=== PATIENT | male | born 1960 | race American Indian/Alaskan Native ===

== ENCOUNTER 2017-04-14 08:31 | Emergency (ER) | payer BC ==
[2017-04-14 09:04] VITALS: BP 116/43
--- NOTE | 2017-04-14 14:11 | Emergency Department Report ---
ED Lower Extremity HPI - General Chief Complaint: Extremity Injury, Lower Stated Complaint: HIP PAIN Time Seen by Provider: 04/14/17 11:54 Source: patient Mode of arrival: Ambulatory Limitations: No Limitations - History of Present Illness Initial Comments: 56-year-old male past medical history none presents with complaint of 2-3 months of persistent left hip discomfort. Patient states he feels pain in his left buttock, nonradiating. Pain is slightly worse when he fully flexes his left leg or if he laterally extends his left leg. Denies any trauma denies any recent falls. Denies any fevers chills saddle paresthesias no bladder or bowel incontinence reported. Patient is ambulatory without assistance. States it is an aching sensation. Denies paresthesias. MD Complaint: hip injury Onset/Timin -: month(s) Injury: Hip: Left Place: home, work, street/outdoors Severity: moderate Severity scale (0 -10): 5 Worsens With: movement Associated Symptoms: ambulatory - Related Data Previous Rx's Medication Instructions Recorded Last Taken Type Acetaminophen/Codeine 1 tab PO Q6H PRN #10 tab 07/11/14 Unknown Rx [Acetaminophen-Codeine #3 TAB] Ibuprofen [Motrin 600 MG tab] 600 mg PO Q8H PRN #10 tablet 07/11/14 Unknown Rx Naproxen 500 mg PO BID PRN #30 tablet 04/14/17 Unknown Rx traMADol [Ultram 50 MG tab] 50 mg PO Q6HR PRN #6 tablet 04/14/17 Unknown Rx Allergies Allergy/AdvReac Type Severity Reaction Status Date / Time No Known Allergies Allergy Verified 07/11/14 11:49 ED Review of Systems ROS: Stated complaint: HIP PAIN Other details as noted in HPI Constitutional: denies: chills, fever Eyes: denies: eye pain, eye discharge, vision change ENT: denies: ear pain, throat pain Respiratory: denies: cough, shortness of breath, wheezing Cardiovascular: denies: chest pain, palpitations Endocrine: no symptoms reported Gastrointestinal: denies: abdominal pain, nausea, diarrhea Genitourinary: denies: urgency, dysuria Musculoskeletal: as per HPI, arthralgia (left hip). denies: back pain, joint swelling Skin: denies: rash, lesions Neurological: denies: headache, weakness, paresthesias Psychiatric: denies: anxiety, depression Hematological/Lymphatic: denies: easy bleeding, easy bruising ED Past Medical Hx - Past Medical History Previous Medical History?: No - Surgical History Past Surgical History?: No - Social History Smoking Status: Current Every Day Smoker Substance Use Type: None - Medications Home Medications: Home Medications Medication Instructions Recorded Confirmed Last Taken Type Acetaminophen/Codeine 1 tab PO Q6H PRN #10 tab 07/11/14 Unknown Rx [Acetaminophen-Codeine #3 TAB] Ibuprofen [Motrin 600 MG tab] 600 mg PO Q8H PRN #10 tablet 07/11/14 Unknown Rx Naproxen 500 mg PO BID PRN #30 tablet 04/14/17 Unknown Rx traMADol [Ultram 50 MG tab] 50 mg PO Q6HR PRN #6 tablet 04/14/17 Unknown Rx ED Physical Exam - General Limitations: No Limitations General appearance: alert, in no apparent distress - Head Head exam: Present: atraumatic, normocephalic - Eye Eye exam: Present: normal appearance, PERRL, EOMI - ENT ENT exam: Present: mucous membranes moist - Neck Neck exam: Present: normal inspection - Respiratory Respiratory exam: Present: normal lung sounds bilaterally. Absent: respiratory distress - Cardiovascular Cardiovascular Exam: Present: regular rate, normal rhythm. Absent: systolic murmur, diastolic murmur, rubs, gallop - GI/Abdominal GI/Abdominal exam: Present: soft, normal bowel sounds - Rectal Rectal exam: Present: deferred - Extremities Exam Extremities exam: Present: normal inspection - Expanded Lower Extremity Exam Left Hip exam: Present: normal inspection, full ROM (hip flexion and extension internal and external rotation fully intact on clinical exam), external rotation , internal rotation Upper Leg exam: Present: normal inspection, full ROM Knee exam: Present: normal inspection, full ROM (knee flexion and extension intact) Lower Leg exam: Present: normal inspection, full ROM Ankle exam: Present: normal inspection, full ROM Foot/Toe exam: Present: normal inspection, full ROM Neuro vascular tendon exam: Present: no vascular compromise (distal dorsalis pedis and posterior tibial pulses intact) Gait: Positive: observed and normal - Back Exam Back exam: Present: normal inspection - Neurological Exam Neurological exam: Present: alert, oriented X3, CN II-XII intact, normal gait - Psychiatric Psychiatric exam: Present: normal affect, normal mood - Skin Skin exam: Present: warm, dry, intact, normal color. Absent: rash ED Course Vital Signs 04/14/17 09:02 Temperature 98.4 F Pulse Rate 83 Respiratory 16 Rate Blood Pressure 116/43 O2 Sat by Pulse 98 Oximetry ED Lower Extremity MDM - Medical Decision Making A/P: Chronic left hip pain 1-likely fromsciatica as patient states that pain is radiating from lower back through his left buttock. 2-no clinical signs of cauda equina patient is ambulatory no saddle paresthesias no bladder or bowel incontinence 3-naproxen when necessary, short course tramadol when necessary 4- follow-up with primary care and orthopedics Critical care attestation.: If time is entered above; I have spent that time in minutes in the direct care of this critically ill patient, excluding procedure time. ED Disposition Clinical Impression: Left hip pain, Sciatica of left side Disposition: TO HOME OR SELFCARE Is pt being admited?: No Does the pt Need Aspirin: No Condition: Stable Instructions: Hip Bursitis (ED), Sciatica (ED), Arthralgia (ED) Prescriptions: Naproxen 500 mg PO BID PRN #30 tablet PRN Reason: Pain traMADol [Ultram 50 MG tab] 50 mg PO Q6HR PRN #6 tablet PRN Reason: Pain Referrals: [facility] [Outside] - 3-5 Days [facility] [Outside] - 3-5 Days [facility] [Provider Group] - 3-5 Days YUMIKO LOGAN MD [Staff Physician] - 3-5 Days Forms: Accompanied Note, Work/School Release Form(ED) Time of Disposition: 14:49
[2017-04-14] MEDS ORDERED: MOTRIN PO ONE (14:16)
--- NOTE | 2017-04-14 15:27 | XRay Report ---
LEFT HIP, 2 views: History: Left hip pain. The bony architecture is intact without evidence of fracture or dislocation. No significant soft tissue abnormality is seen. IMPRESSION: Normal left hip.
== END 2017-04-14 15:26 | disposition home or self-care (01) ==
LOC: ED 08:31
DX: M54.32 Sciatica, left side (principal); F17.200 Nicotine dependence, unspecified, uncomplicated
CPT/HCPCS: 99283

== ENCOUNTER 2018-05-23 08:31 | Emergency (ER) | payer BC, OTHER ==
[2018-05-23] MEDS ORDERED: IBUPROFEN PO ONE (09:02)
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
[2018-05-23 11:01] VITALS: BP 120/72
== END 2018-05-23 10:32 | disposition home or self-care (01) ==
LOC: ED 08:31
DX: S80.02XA Contusion of left knee, initial encounter (principal); S60.212A Contusion of left wrist, initial encounter; F17.200 Nicotine dependence, unspecified, uncomplicated; V49.9XXA Car occupant (driver) (passenger) injured in unspecified traffic accident, initial encounter; Y93.89 Activity, other specified; Y99.8 Other external cause status; Y92.410 Unspecified street and highway as the place of occurrence of the external cause
CPT/HCPCS: 99283

== ENCOUNTER 2018-12-04 04:09 | Emergency (ER) | payer SELFPAY ==
[2018-12-04 05:26] VITALS: BP 125/84
--- NOTE | 2018-12-04 06:03 | XRay Report ---
Right knee-3 views INDICATION: right knee pain. Generalized right knee pain for the past 2 days with no reported injur y COMPARISON: None. IMPRESSION: Moderate tricompartmental degenerative arthrosis with no acute fracture identified. Ther e is mild infrapatellar soft tissue swelling and enthesopathic change along the inferior patellar vee e. Normal alignment. Signer Name: Johnathon Parker MD Signed: 12/04/2018 5:59 AM Workstation Name: [id number]
--- NOTE | 2018-12-04 07:50 | Emergency Department Report ---
ED Extremity Problem HPI - General Chief complaint: Extremity Injury, Lower Stated complaint: RT KNEE PAIN Time Seen by Provider: 12/04/18 07:02 Source: patient Mode of arrival: Ambulatory Limitations: No Limitations - History of Present Illness Initial comments: 58-year-old -[place] male presents to the emergency room for 2 day history of right knee pain. Patient denies any injuries. Patient reports that he often lifting heavy objects and pulling in her produce refrigerator. Patient reports he took Aleve last Tuesday which she reports health but often irritates his stomach. Patient reports that the pain is achy comes and goes. He denies any past medical history takes no medications on a daily basis and has no known drug allergies. MD Complaint: extremity pain Onset/Timin -: days(s) Location: right, knee History of Same: No -: Yes arthralgia Severity scale (0 -10): 10 Quality: aching Consistency: intermittent Worsens with: rest - Related Data Previous Rx's Medication Instructions Recorded Last Taken Type Meloxicam [Mobic] 7.5 mg PO QDAY #15 tablet 12/04/18 Unknown Rx Allergies Allergy/AdvReac Type Severity Reaction Status Date / Time No Known Allergies Allergy Verified 05/23/18 08:35 ED Review of Systems ROS: Stated complaint: RT KNEE PAIN Other details as noted in HPI Comment: All other systems reviewed and negative Musculoskeletal: arthralgia (right knee) ED Past Medical Hx - Past Medical History Previous Medical History?: No - Surgical History Past Surgical History?: No - Social History Smoking Status: Current Every Day Smoker Substance Use Type: None - Medications Home Medications: Home Medications Medication Instructions Recorded Confirmed Last Taken Type Meloxicam [Mobic] 7.5 mg PO QDAY #15 tablet 12/04/18 Unknown Rx ED Physical Exam - General Limitations: No Limitations General appearance: alert, in no apparent distress - Head Head exam: Present: atraumatic, normocephalic - Eye Eye exam: Present: normal appearance - Neck Neck exam: Present: normal inspection - Respiratory Respiratory exam: Present: normal lung sounds bilaterally. Absent: respiratory distress - Cardiovascular Cardiovascular Exam: Present: regular rate, normal rhythm. Absent: systolic murmur, diastolic murmur, rubs, gallop - Expanded Lower Extremity Exam Right Hip exam: Present: normal inspection, full ROM Upper Leg exam: Present: normal inspection, full ROM Knee exam: Present: full ROM, crepidus. Absent: swelling, abrasion, dislocation, erythema, effusion Lower Leg exam: Present: normal inspection Ankle exam: Present: normal inspection Foot/Toe exam: Present: normal inspection - Back Exam Back exam: Present: normal inspection - Neurological Exam Neurological exam: Present: alert, oriented X3 - Psychiatric Psychiatric exam: Present: normal affect, normal mood - Skin Skin exam: Present: warm, dry, intact, normal color. Absent: rash ED Course Vital Signs 12/04/18 04:39 Temperature 98 F Pulse Rate 70 Respiratory 18 Rate Blood Pressure 125/84 O2 Sat by Pulse 97 Oximetry ED Medical Decision Making - Radiology Data Radiology results: report reviewed Patient: MORENA BENNETT MR#: [id number] : 1960 Acct:[id number] Age/Sex: 58 / M ADM Date: 12/04/18 Loc: ED Attending Dr: Ordering Physician: ED MD ALEX Date of Service: 12/04/18 Procedure(s): XR knee 3V RT Accession Number(s): [id number] cc: ED MD ALEX Fluoro Time In Minutes: Right knee-3 views INDICATION: right knee pain. Generalized right knee pain for the past 2 days with no reported injury COMPARISON: None. IMPRESSION: Moderate tricompartmental degenerative arthrosis with no acute fracture identified. There is mild infrapatellar soft tissue swelling and enthesopathic change along the inferior patellar pole. Normal alignment. Signer Name: Johnathon Parker MD Signed: 12/04/2018 5:59 AM Workstation Name: [id number] Transcribed By: CAN Dictated By: Johnathon Parker MD Electronically Authenticated By: Johnathon Parker MD Signed Date/Time: 12/04/18 0559 DD/ 0558 TD/TT: - Medical Decision Making 58-year-old -[place] male presents to the emergency room for 2 day history of right knee pain. Patient denies any injuries. Patient reports that he often lifting heavy objects and pulling in her produce refrigerator. Patient reports he took Aleve last Tuesday which she reports health but often irritates his stomach. Patient reports that the pain is achy comes and goes. He denies any past medical history takes no medications on a daily basis and has no known drug allergies. Face shows tricompartment degenerative joint disease. Patient will be given a prescription for Mobic and to follow-up with the orthopedic provider. Critical care attestation.: If time is entered above; I have spent that time in minutes in the direct care of this critically ill patient, excluding procedure time. ED Disposition Clinical Impression: Degenerative joint disease of knee, right Qualifiers: Osteoarthritis type: primary Qualified Code(s): M17.11 - Unilateral primary osteoarthritis, right knee Disposition: TO HOME OR SELFCARE Is pt being admited?: No Does the pt Need Aspirin: No Condition: Stable Instructions: Osteoarthritis (ED), Self-Care Measures with a Chronic Disease (ED) Additional Instructions: He take pain medication as needed. It is very important for you to follow up with orthopedic provider I have listed his information below it would be Dr. Barreto. Prescriptions: Meloxicam [Mobic] 7.5 mg PO QDAY #15 tablet Referrals: [facility] MD CURTIS [Primary Care Provider] - 3-5 Days YUMIKO BARRETO MD [Staff Physician] - 3-5 Days
== END 2018-12-04 07:57 | disposition home or self-care (01) ==
LOC: ED 04:09
DX: M17.11 Unilateral primary osteoarthritis, right knee (principal); F17.200 Nicotine dependence, unspecified, uncomplicated; X50.0XXA Overexertion from strenuous movement or load, initial encounter; Y93.89 Activity, other specified; Y92.098 Other place in other non-institutional residence as the place of occurrence of the external cause; Y99.8 Other external cause status
CPT/HCPCS: 99283

== ENCOUNTER 2019-06-12 09:00 | Emergency (ER) | payer SELFPAY ==
[2019-06-12 09:24] VITALS: BP 128/82
--- NOTE | 2019-06-12 10:02 | XRay Report ---
Right foot-2 views INDICATION: pain and swelling. COMPARISON: None. IMPRESSION: Mild soft tissue swelling along the dorsal and medial aspects of the foot, with no acute osseous abnormality identified. Moderate great toe MTP DJD is present. Moderately advanced degenera tive arthrosis at the articulation of the hindfoot and midfoot with slight midfoot collapse. Correlat e for potential evolving neuropathic joint. Signer Name: Johnathno Parker MD Signed: 06/12/2019 9:57 AM Workstation Name: [id number]
--- NOTE | 2019-06-12 11:41 | Emergency Department Report ---
ED Extremity Problem HPI - General Chief complaint: Extremity Injury, Lower Stated complaint: RIGHT TOE PAIN Time Seen by Provider: 06/12/19 11:21 Source: patient Mode of arrival: Ambulatory Limitations: No Limitations - History of Present Illness Initial comments: 58-year-old male presents to the ER today complaining of right fourth toe pain. Patient states that he accidentally struck his right fourth toe on the corner of the bed last night. He reports pain and swelling to the right fourth toe but no apparent bruising. He reports no other symptoms at this time. MD Complaint: joint paint, other (Right 4th toe pain) -: Sudden Location: toe - Related Data Previous Rx's Medication Instructions Recorded Last Taken Type Meloxicam [Mobic] 7.5 mg PO BID PRN #14 tablet 06/12/19 Unknown Rx Allergies Allergy/AdvReac Type Severity Reaction Status Date / Time No Known Allergies Allergy Verified 05/23/18 08:35 ED Review of Systems ROS: Stated complaint: RIGHT TOE PAIN Other details as noted in HPI Constitutional: denies: chills, fever Musculoskeletal: joint swelling, arthralgia ED Past Medical Hx - Past Medical History Previous Medical History?: No - Surgical History Past Surgical History?: No - Social History Smoking Status: Current Every Day Smoker Substance Use Type: Alcohol - Medications Home Medications: Home Medications Medication Instructions Recorded Confirmed Last Taken Type Meloxicam [Mobic] 7.5 mg PO BID PRN #14 tablet 06/12/19 Unknown Rx ED Physical Exam - General Limitations: No Limitations General appearance: alert, in no apparent distress - Head Head exam: Present: atraumatic, normocephalic, normal inspection - ENT ENT exam: Present: normal exam, normal orophraynx, mucous membranes moist - Cardiovascular Cardiovascular Exam: Present: regular rate, normal rhythm, normal heart sounds - GI/Abdominal GI/Abdominal exam: Present: soft. Absent: distended, tenderness - Expanded Lower Extremity Exam Right Foot/Toe exam: Present: tenderness (Moderate tenderness to palpation to the right fourth toe diffusely. Mild associated swelling. No apparent deformity, ecchymosis or erythema, open wounds.) - Neurological Exam Neurological exam: Present: alert, oriented X3, CN II-XII intact - Psychiatric Psychiatric exam: Present: normal affect, normal mood - Skin Skin exam: Present: intact ED Course Vital Signs 06/12/19 09:20 Temperature 98.1 F Pulse Rate 69 Respiratory 15 Rate Blood Pressure 128/82 O2 Sat by Pulse 99 Oximetry Critical care attestation.: If time is entered above; I have spent that time in minutes in the direct care of this critically ill patient, excluding procedure time. ED Disposition Clinical Impression: Contusion, toe Disposition: DC-01 TO HOME OR SELFCARE Is pt being admited?: No Does the pt Need Aspirin: No Condition: Stable Instructions: Foot Contusion (ED) Additional Instructions: Skip tape the toe as instructed. Recommend ice for the next 2 days, 20 minutes on then 20 minutes off. Take medication as prescribed. If you still having pain in about 1 to 2 weeks recommend follow-up with patient registration specialist. Prescriptions: Meloxicam [Mobic] 7.5 mg PO BID PRN #14 tablet PRN Reason: PAIN Referrals: PRIMARY CARE, [Primary Care Provider] - 3-5 Days YUMIKO LOGAN MD [Staff Physician] - 7-10 days Time of Disposition: 11:43
== END 2019-06-12 12:17 | disposition home or self-care (01) ==
LOC: ED 09:00
DX: S90.121A Contusion of right lesser toe(s) without damage to nail, initial encounter (principal); F17.200 Nicotine dependence, unspecified, uncomplicated; Z79.899 Other long term (current) drug therapy; W22.8XXA Striking against or struck by other objects, initial encounter; Y93.89 Activity, other specified; Y92.89 Other specified places as the place of occurrence of the external cause; Y99.8 Other external cause status
CPT/HCPCS: 99283

== ENCOUNTER 2019-08-24 15:22 | Emergency (ER) | payer SELFPAY ==
[2019-08-24] MEDS ORDERED: IBUPROFEN 600 MG TAB PO ONE (15:53)
--- NOTE | 2019-08-24 16:00 | Emergency Department Report ---
ED Lower Extremity HPI - General Chief Complaint: Extremity Injury, Lower Stated Complaint: L ANKLE PAIN Time Seen by Provider: 08/24/19 15:50 Source: patient Mode of arrival: Wheelchair Limitations: No Limitations - History of Present Illness Initial Comments: 58-year-old -[place] male with no past medical history presents to the emergency room for left ankle and foot pain after jumping off a truck at work today. Patient states that he was able to get home but left early and once he got home he took his shoes off and that is when the swelling and pain presented. Patient currently takes no medications has no known drug allergies. MD Complaint: foot injury - Related Data Previous Rx's Medication Instructions Recorded Last Taken Type Meloxicam [Mobic] 7.5 mg PO BID PRN #14 tablet 06/12/19 Unknown Rx Ibuprofen [Motrin 600 MG tab] 600 mg PO Q8H PRN #30 tablet 08/24/19 Unknown Rx Oxycodone HCl/Acetaminophen 1 each PO Q6HR PRN #15 tablet 08/24/19 Unknown Rx [Percocet 7.5/325 mg] Allergies Allergy/AdvReac Type Severity Reaction Status Date / Time No Known Allergies Allergy Verified 05/23/18 08:35 ED Review of Systems ROS: Stated complaint: L ANKLE PAIN Other details as noted in HPI ED Past Medical Hx - Past Medical History Previous Medical History?: No - Surgical History Past Surgical History?: No - Social History Smoking Status: Never Smoker Substance Use Type: None - Medications Home Medications: Home Medications Medication Instructions Recorded Confirmed Last Taken Type Meloxicam [Mobic] 7.5 mg PO BID PRN #14 tablet 06/12/19 Unknown Rx Ibuprofen [Motrin 600 MG tab] 600 mg PO Q8H PRN #30 tablet 08/24/19 Unknown Rx Oxycodone HCl/Acetaminophen 1 each PO Q6HR PRN #15 tablet 08/24/19 Unknown Rx [Percocet 7.5/325 mg] ED Physical Exam - General Limitations: No Limitations General appearance: alert, in no apparent distress - Head Head exam: Present: atraumatic, normocephalic - Eye Eye exam: Present: normal appearance - ENT ENT exam: Present: mucous membranes moist - Expanded Lower Extremity Exam Left Hip exam: Present: normal inspection, full ROM Knee exam: Present: normal inspection, full ROM Ankle exam: Present: full ROM, tenderness, swelling Foot/Toe exam: Present: full ROM, tenderness (cuneiform bone). Absent: swelling Neuro vascular tendon exam: Present: no vascular compromise - Back Exam Back exam: Present: normal inspection, full ROM - Neurological Exam Neurological exam: Present: alert, oriented X3 - Psychiatric Psychiatric exam: Present: normal affect, normal mood ED Course Vital Signs 08/24/19 15:33 Temperature 98 F Pulse Rate 78 Respiratory 16 Rate Blood Pressure 123/77 O2 Sat by Pulse 99 Oximetry ED Lower Extremity MDM - Radiology Data Radiology results: report reviewed Referring Physician:CLAYTON EVANGELISTAPatient Name:MORENA BENNETTPatient ID:[id number] of :[id number]:MaleAccession:[id number] Date:[id number] Status:Finalized Findings [address] [address] XRay Report Signed Patient: MORENA BENNETT MR#: [id number] : 1960 Acct:[id number] Age/Sex: 58 / M ADM Date: 08/24/19 Loc: ED Attending Dr: Ordering Physician: Clayton Go MD Date of Service: 08/24/19 Procedure(s): XR ankle 3+V LT Accession Number(s): [id number] cc: Clayton Go MD Fluoro Time In Minutes: LEFT ANKLE, 3 VIEWS 08/24/2019 INDICATION / CLINICAL INFORMATION: MAIN: ankle injury; pt presents to ed with complaint of left ankle injury. COMPARISON: None available. FINDINGS: Fracture of the medial malleolus. Slight cortical irregularity is noted in the distal fibula that may represent a nondisplaced fracture. The ankle mortise is well maintained. Signer Name: Steven Ding MD Signed: 08/24/2019 5:25 PM Workstation Name: [id number] Transcribed By: JOVANNY Dictated By: Steven Ding MD Electronically Authenticated By: Steven Ding MD Signed Date/Time: 08/24/191724 DD/ 22 TD/TT: [address] [address] XRay Report Signed Patient: MORENA BENNETT MR#: [id number] : 1960 Acct:[id number] Age/Sex: 58 / M ADM Date: 08/24/19 Loc: ED Attending Dr: Ordering Physician: ANDREW KENNY Date of Service: 08/24/19 Procedure(s): XR foot 3+V LT Accession Number(s): [id number] cc: ANDREW KENNY Fluoro Time In Minutes: XR foot 3+V LT INDICATION / CLINICAL INFORMATION: MAIN: pain; pt presents to ed with complaint of left ankle injury. COMPARISON: None available. FINDINGS: BONES/JOINT(S): No acute fracture or subluxation. 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 SOFT TISSUES: No significant abnormality. ADDITIONAL FINDINGS: None. Ankle radiographs are dictated under a separate report. Signer Name: Tomas Shane MD Signed: 08/24/2019 4:11 PM Workstation Name: [id number] Transcribed By: DAVI Dictated By: Tomas Shane MD Electronically Authenticated By: Tomas Shane MD Signed Date/Time: 08/24/191610 DD/ 09 TD/TT: - Medical Decision Making 58-year-old -[place] male with no past medical history presents to the emergency room for left ankle and foot pain after jumping off a truck at work today. Patient states that he was able to get home but left early and once he got home he took his shoes off and that is when the swelling and pain presented. Patient currently takes no medications has no known drug allergies. X-ray of left ankle and foot. Patient will be given ibuprofen for pain management. Critical care attestation.: If time is entered above; I have spent that time in minutes in the direct care of this critically ill patient, excluding procedure time. ED Disposition Clinical Impression: Fx medial malleolus-closed, Fx lateral malleolus-closed Disposition: - TO HOME OR SELFCARE Is pt being admited?: No Does the pt Need Aspirin: No Condition: Stable Additional Instructions: You have ankle fracture both bones medial and lateral. You will need to follow- up with orthopedic provider I have listed their information below for your convenience. Take pain medication as prescribed do not operate heavy machinery while taking the Percocet. Be sure to eat while taking the ibuprofen. Please u se your crutches to ambulate. Elevate at night. Prescriptions: Ibuprofen [Motrin 600 MG tab] 600 mg PO Q8H PRN #30 tablet PRN Reason: Pain , Severe (7-10) Oxycodone HCl/Acetaminophen [Percocet 7.5/325 mg] 1 each PO Q6HR PRN #15 tablet PRN Reason: Pain Referrals: YUMIKO LOGAN MD [Staff Physician] - 3-5 Days Forms: Work/School Release Form(ED)
--- NOTE | 2019-08-24 16:15 | XRay Report ---
XR foot 3+V LT INDICATION / CLINICAL INFORMATION: MAIN: pain; pt presents to ed with complaint of left ankle injury. COMPARISON: None available. FINDINGS: BONES/JOINT(S): No acute fracture or subluxation. 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 SOFT TISSUES: No significant abnormality. ADDITIONAL FINDINGS: None. Ankle radiographs are dictated under a separate report. Signer Name: Tomas Shane MD Signed: 08/24/2019 4:11 PM Workstation Name: [id number]
--- NOTE | 2019-08-24 17:29 | XRay Report ---
LEFT ANKLE, 3 VIEWS 08/24/2019 INDICATION / CLINICAL INFORMATION: MAIN: ankle injury; pt presents to ed with complaint of left ankle injury. COMPARISON: None available. FINDINGS: Fracture of the medial malleolus. Slight cortical irregularity is noted in the distal fibula that may represent a nondisplaced fracture . The ankle mortise is well maintained. Signer Name: Steven Ding MD Signed: 08/24/2019 5:25 PM Workstation Name: [id number]
[2019-08-24 19:14] VITALS: BP 130/78
== END 2019-08-24 18:45 | disposition home or self-care (01) ==
LOC: ED 15:22
DX: S82.62XA Displaced fracture of lateral malleolus of left fibula, initial encounter for closed fracture (principal); Z79.899 Other long term (current) drug therapy; X58.XXXA Exposure to other specified factors, initial encounter; Y93.89 Activity, other specified; Y92.89 Other specified places as the place of occurrence of the external cause; Y99.8 Other external cause status

== ENCOUNTER 2020-06-02 06:04 | Emergency (ER) | payer SELFPAY ==
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
[2020-06-02 06:29] VITALS: BP 130/64
--- NOTE | 2020-06-02 06:57 | XRay Report ---
LEFT WRIST 4 VIEW(S) INDICATION / CLINICAL INFORMATION: left wrist pain COMPARISON: None available. FINDINGS: BONES / JOINT(S): No acute fracture or subluxation. Mild radiocarpal and triscaphe degenerative arthr osis. SOFT TISSUES: No significant abnormality. ADDITIONAL FINDINGS: None. Signer Name: Dorys Crawford MD Signed: 06/02/2020 6:53 AM Workstation Name: [id number]
--- NOTE | 2020-06-02 07:56 | Emergency Department Report ---
Upper Extremity - HPI Chief Complaint: Extremity Injury, Upper Stated Complaint: LEFT WRIST INJURY Time Seen by Provider: 06/02/20 06:24 Upper Extremity: Left Wrist Mechanism: Other (horse playing with son last night) Symptoms: Yes Pain with Movement, Yes Limited Range of Movement, No Deformity, No Numbness, No Weakness, No Bruising/Ecchymosis, No Laceration or Abrasion Other History: 59-year-old male presents emerged department with pain to her left wrist and thumb area which been off and on for some time and reaggravated last night while playing around with son during the Tuesday very sharp pain shooting down his wrist to the point where he thought it may have been fractured to presents emergency department for further evaluation and and treatment ED Review of Systems ROS: Stated complaint: LEFT WRIST INJURY Other details as noted in HPI Comment: All other systems reviewed and negative ED Past Medical Hx - Past Medical History Previous Medical History?: No - Surgical History Past Surgical History?: Yes Additional Surgical History: Left Ankle - Social History Smoking Status: Never Smoker Substance Use Type: None - Medications Home Medications: Home Medications Medication Instructions Recorded Confirmed Last Taken Type Meloxicam [Mobic] 7.5 mg PO BID PRN #14 tablet 06/12/19 Unknown Rx Ibuprofen [Motrin 600 MG tab] 600 mg PO Q8H PRN #30 tablet 08/24/19 Unknown Rx Oxycodone HCl/Acetaminophen 1 each PO Q6HR PRN #15 tablet 08/24/19 Unknown Rx [Percocet 7.5/325 mg] Ketorolac [Toradol] 10 mg PO Q6H PRN #14 tablet 06/02/20 Unknown Rx Upper Extremity Exam - Exam General: Vital signs noted. No distress. Alert and acting appropriately. Head and Torso: No HEENT Abnormality, No Neck Tenderness, No Chest/Lungs Abnormality, No Abdominal Tenderness, No Back Tenderness Shoulder Exam: Yes Normal Range of Motion in Shoulder, No Shoulder Tenderness, No Clavicle Tenderness, No Shoulder Deformity, No AC Joint Tenderness Arm Exam: No Arm/Humerus Tenderness, No Arm Deformity Elbow: No Elbow Tenderness, No Normal Range of Motion in Elbow, No Elbow Def ormity Forearm: No Forearm Tenderness, No Forearm Deformity, No Pain with Pronation, No Pain with Supination Wrist: Yes Normal ROM in Wrist, No Wrist Tenderness, No Wrist Deformity, No Snuffbox Tenderness, No Pain with Axial Thumb Compression Hand: Yes Normal ROM in Digit(s), No Hand Tenderness, No Hand Deformity, No Digit Tenderness, No Digit(s) Deformity, No Tendon Dysfunction CMS Exam: No Broken Skin, No Normal Distal Pulses, No Normal Capillary Refill, No Normal Distal Sensation ED Course Vital Signs 06/02/20 06:27 Temperature 98.4 F Pulse Rate 81 Respiratory 20 Rate Blood Pressure 130/64 [Right] O2 Sat by Pulse 97 Oximetry ED Medical Decision Making - Radiology Data Radiology results: report reviewed Critical care attestation.: If time is entered above; I have spent that time in minutes in the direct care of this critically ill patient, excluding procedure time. ED Disposition Clinical Impression: Wrist tendonitis Disposition: - TO HOME OR SELFCARE Is pt being admited?: No Does the pt Need Aspirin: No Condition: Stable Instructions: Tenosynovitis, Tendinitis, De Quervain's Tenosynovitis Surgical Release, Care After, De Quervain's Tenosynovitis Additional Instructions: Please obtain a thumb spica brace as we discussed De Quervain's tenosynovitis Overview De Quervain's tenosynovitis ([id number]) is a painful condition affecting the tendons on the thumb side of your wrist. If you have de Quervain's tenosynovitis, it will probably hurt when you turn your wrist, grasp anything or make a fist. Although the exact cause of de Quervain's tenosynovitis isn't known, any activity that relies on repetitive hand or wrist movement such as working in the garden, playing golf or racket sports, or lifting your baby can make it worse. Symptoms Symptoms of de Quervain's tenosynovitis include: Pain near the base of your thumb Swelling near the base of your thumb Difficulty moving your thumb and wrist when you're doing something that involves grasping or pinching A "sticking" or "stop-and-go" sensation in your thumb when moving it If the condition goes too long without treatment, the pain may spread further into your thumb, back into your forearm or both. Pinching, grasping and other movements of your thumb and wrist aggravate the pain. When to see a doctor Consult your doctor if you're still having problems with pain or function and you've already tried: Not using your affected thumb Applying cold to the affected area Using nonsteroidal anti-inflammatory drugs, such as ibuprofen (Advil, Motrin IB, others) and naproxen (Aleve) Causes Chronic overuse of your wrist is commonly associated with de Quervain's tenosynovitis. Tendons are rope-like structures that attach muscle to bone. When you overhead cleaner, grasp, clench, pinch or wring anything in your hand, two tendons in your wrist and lower thumb normally glide smoothly through the small tunnel that connects them to the base of the thumb. Repeating a particular motion day after day may irritate the sheath around the two tendons, causing thickening and swelling that restricts their movement. Other causes of de Quervain's tenosynovitis include: Direct injury to your wrist or tendon; scar tissue can restrict movement of the tendons Inflammatory arthritis, such as rheumatoid arthritis Risk factors Risk factors for de Quervain's tenosynovitis include: Age. If you're between the ages of 30 and 50, you have a higher risk of developing de Quervain's tenosynovitis than do other age groups, including children. Sex. The condition is more common in women. Being . The condition may be associated with . Baby care. Lifting your child repeatedly involves using your thumbs as leverage and may also be associated with the condition. Jobs or hobbies that involve repetitive hand and wrist motions. These may contribute to de Quervain's tenosynovitis. Complications Untreated de Quervain's tenosynovitis might make it hard to use your hand and wrist properly and limit your wrist's range of motion. Prescriptions: Ketorolac [Toradol] 10 mg PO Q6H PRN #14 tablet PRN Reason: Pain Referrals: YUMIKO LOGAN MD [Staff Physician] - 3-5 Days
== END 2020-06-02 09:12 | disposition home or self-care (01) ==
LOC: ED 06:04
DX: M77.8 Other enthesopathies, not elsewhere classified (principal); Z98.890 Other specified postprocedural states; Z79.899 Other long term (current) drug therapy

== ENCOUNTER 2020-08-05 21:11 | Emergency (ER) | payer SELFPAY ==
[2020-08-05 22:12] VITALS: BP 135/70
[2020-08-05] MEDS ORDERED: HYDROcodone/ACETAMINOPHEN 5-325 MG TAB PO ONE (22:38)
[2020-08-05] MEDS ORDERED: TETANUS,DIPH,PERTUSS(ACELL) VACCINE 0.5 ML SYRINGE IM ONE (22:38)
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
== END 2020-08-06 00:44 | disposition home or self-care (01) ==
LOC: ED 21:11
DX: T23.202A Burn of second degree of left hand, unspecified site, initial encounter (principal); F17.200 Nicotine dependence, unspecified, uncomplicated; Z79.899 Other long term (current) drug therapy; X08.8XXA Exposure to other specified smoke, fire and flames, initial encounter; Y93.89 Activity, other specified; Y92.89 Other specified places as the place of occurrence of the external cause; Y99.8 Other external cause status
CPT/HCPCS: 90471; 90715; 99282

== ENCOUNTER 2021-01-27 08:45 | Emergency (ER) | payer SELFPAY ==
[2021-01-27] MEDS ORDERED: IBUPROFEN 800 MG TAB PO ONE (09:11)
--- NOTE | 2021-01-27 09:18 | Emergency Department Report ---
Minor Respiratory - HPI Chief Complaint: Upper Respiratory Infection Stated Complaint: BAD COLD Time Seen by Provider: 01/27/21 09:10 Duration: 2 Days Pain Location: Chest Severity: moderate Minor Respiratory: Yes Rhinorrhea, Yes Sore Throat, Yes Able to Tolerate Fluids, Yes Cough, Yes Fever, No Ear Pain, No Sick Contacts, No Hemoptysis, No Chest Pain, No Shortness of Breath Other History: 60 YO AA MALE COMES TO ER WITH COUGH, CHILLS, BODY ACHES FOR 2 DAYS. PT IS A SMOKER. DENIES COPD. DENIES SPUTUM. IS NOT COVID19 VACINATED. DENIES CP OR SOB. AMBULATORY TO ER WITH NO HYPOXIA ON TRIAGE EXAM. ED Review of Systems ROS: Stated complaint: BAD COLD Other details as noted in HPI Comment: All other systems reviewed and negative ED Past Medical Hx - Past Medical History Previous Medical History?: No - Surgical History Past Surgical History?: Yes Additional Surgical History: Left Ankle - Family History Family history: no significant - Social History Smoking Status: Current Every Day Smoker Substance Use Type: Alcohol - Medications Home Medications: Home Medications Medication Instructions Recorded Confirmed Last Taken Type Albuterol Mdi (or & Nicu Only) 2 puff IH QID PRN #1 inhalation 01/27/21 Unknown Rx [ProAir HFA Inhaler] Ascorbic Acid [Vitamin C] 500 mg PO QDAY #30 capsule.er 01/27/21 Unknown Rx Azithromycin [Zithromax Z-HEIDE] 250 mg PO DAILY #6 tablet 01/27/21 Unknown Rx Zinc [Zinc 50mg TAB] 50 mg PO DAILY #30 tablet 01/27/21 Unknown Rx Minor Respiratory Exam - Exam General: Vital signs noted. No distress. Alert and acting appropriately. HEENT: Yes Moist Mucous Membranes, No Pharyngeal Erythema, No Pharyngeal Exudates, No Rhinorrhea, No Conjuctival Injection, No Frontal Tenderness, No Maxillary Tenderness Ear: Neither TM Bulge, Neither TM Erythema, Neither EAC Pain, Neither EAC Discharge Neck: Yes Supple, No Adenopathy Lungs: Yes Good Air Exchange, No Wheezes, No Ronchi, No Stridor, No Cough, No Labored Respirations, No Retractions, No Use of Accessory Muscles, No Other Abnormal Lung Sounds Heart: Yes Regular, No Murmur Abdomen: Yes Normal Bowel Sounds, No Tenderness, No Peritoneal Signs Skin: No Rash, No Edema Neurologic: Alert and oriented, no deficits. Musculoskeletal: Unremarkable. ED Course Vital Signs 01/27/21 08:59 Temperature 100.6 F H Pulse Rate 94 H Respiratory 20 Rate Blood Pressure 118/64 O2 Sat by Pulse 97 Oximetry - Reevaluation(s) Reevaluation #1: 01/27/21 98.6 temp on dc ED Medical Decision Making - Lab Data Result diagrams: 01/27/21 09:41 01/27/21 09:41 - Radiology Data Radiology results: report reviewed, image reviewed PNA- SEE REPORT - Medical Decision Making Lab Results 01/27/21 01/27/21 01/27/21 Range/Units 09:17 09:41 09:41 WBC 6.1 (4.5-11.0) K/mm3 RBC 4.59 (3.65-5.03) M/mm3 Hgb 14.6 (11.8-15.2) gm/dl Hct 42.3 (35.5-45.6) % MCV 92 (84-94) fl MCH 32 (28-32) pg MCHC 34 (32-34) % RDW 13.0 L (13.2-15.2) % Plt Count 188 (140-440) K/mm3 Lymph % (Auto) 13.9 (13.4-35.0) % Nobles % (Auto) 10.0 H (0.0-7.3) % Eos % (Auto) 0.3 (0.0-4.3) % Baso % (Auto) 0.5 (0.0-1.8) % Lymph # (Auto) 0.8 L (1.2-5.4) K/mm3 Nobles # (Auto) 0.6 (0.0-0.8) K/mm3 Eos # (Auto) 0.0 (0.0-0.4) K/mm3 Baso # (Auto) 0.0 (0.0-0.1) K/mm3 Seg Neutrophils % 75.3 H (40.0-70.0) % Seg Neutrophils # 4.6 (1.8-7.7) K/mm3 Sodium 134 L (137-145) mmol/L Potassium 3.6 (3.6-5.0) mmol/L Chloride 96.9 L (98-107) mmol/L Carbon Dioxide 24 (22-30) mmol/L Anion Gap 17 mmol/L BUN 9 (9-20) mg/dL Creatinine 0.8 (0.8-1.3) mg/dL Estimated GFR > 60 ml/min BUN/Creatinine Ratio 11 % Glucose 114 H (75-100) mg/dL Calcium 8.8 (8.4-10.2) mg/dL Total Bilirubin 1.00 (0.1-1.2) mg/dL AST 34 (5-40) units/L ALT 23 (7-56) units/L Alkaline Phosphatase 68 (35-129) units/L Lactate Dehydrogenase 392 H (91-180) units/L C-Reactive Protein 26.30 H (0.00-1.30) mg/dL Total Protein 7.7 (6.3-8.2) g/dL Albumin 3.5 L (3.9-5) g/dL Albumin/Globulin Ratio 0.8 % Influenza A (Rapid) Negative (Negative) Influenza B (Rapid) Negative (Negative) Vital Signs 01/27/21 08:59 Temperature 100.6 F H Pulse Rate 94 H Respiratory 20 Rate Blood Pressure 118/64 O2 Sat by Pulse 97 Oximetry labs noted xray noted walk test- sat on room anup 98. prior to dc temp down trending, taking po, no tachycardia, hypotension or sob/cp. Discussed with Dr Patel Pt dc home with d/c plan of care including follow up, meds, diet and activity. I've educated the pt the importance of isolation due to being contagous to others. Pt verbalizes understanding of dc plan of care. - Differential Diagnosis RO COVID19/URI/PNA/FLU Critical care attestation.: If time is entered above; I have spent that time in minutes in the direct care of this critically ill patient, excluding procedure time. ED Disposition Clinical Impression: Person under investigation for COVID-19, Pneumonia, Cigarette smoker Disposition: 01 HOME / SELF CARE / HOMELESS Is pt being admited?: No Does the pt Need Aspirin: No Condition: Stable Instructions: COVID-19, Bacterial Pneumonia (ED) Additional Instructions: MEDS ORDERED TODAY FOLLOW UP WITH PCP WITH IN 48 HOURS FOR RECHECK YOU MAY BE A CANDIDATE FOR MONOCLONAL ANTIBODIES- WHICH ARE NOT DONE IN ER REFERRAL BELOW DIET AND ACTIVITY TOLERATED SELF ISOLATION- YOU CAN SPREAD THIS TO OTHERS Prescriptions: Albuterol Mdi (or & Nicu Only) [ProAir HFA Inhaler] 2 puff IH QID PRN #1 inhalation PRN Reason: Shortness Of Breath Ascorbic Acid [Vitamin C] 500 mg PO QDAY #30 capsule.er Zinc [Zinc 50mg TAB] 50 mg PO DAILY #30 tablet Azithromycin [Zithromax Z-HEIDE] 250 mg PO DAILY #6 tablet Referrals: PRIMARY CAREMD [Primary Care Provider] - 3-5 Days DANAY PATRICIA MD [Staff Physician] - 3-5 Days Time of Disposition: 09:33
--- NOTE | 2021-01-27 09:46 | XRay Report ---
CHEST 2 VIEWS INDICATION: COUGH. COMPARISON: None available FINDINGS: Support devices: None. Heart: Within normal limits. Lungs/pleura: Scattered bilateral lung opacities are identified, right greater than left. No pleural effusion or pneumothorax. Additional findings: None. IMPRESSION: Scattered bilateral lung opacities are identified concerning for atypical pneumonia or viral infectio n. Signer Name: Tom Trujillo Jr, MD Signed: 01/27/2021 9:41 AM Workstation Name: [id number]
[2021-01-27 10:09] LABS: Basophils % (Auto) 0.5 % (0.0-1.8); Eosinophils % (Auto) 0.3 % (0.0-4.3); Hematocrit 42.3 % (35.5-45.6); Hemoglobin 14.6 gm/dl (11.8-15.2); Lymphocytes # (Auto) 0.8 K/mm3 (1.2-5.4); Lymphocytes % (Auto) 13.9 % (13.4-35.0); Mean Corpuscular HGB Conc 34 % (32-34); Mean Corpuscular Volume 92 fl (84-94); Monocytes # (Auto) 0.6 K/mm3 (0.0-0.8); Platelet Count 188 K/mm3 (140-440); Red Blood Count 4.59 M/mm3 (3.65-5.03)
[2021-01-27 10:27] LABS: Alanine Aminotransferase 23 units/L (7-56); Albumin 3.5 g/dL (3.9-5); BUN/Creatinine Ratio 11; Blood Urea Nitrogen 9 mg/dL (9-20); Calcium 8.8 mg/dL (8.4-10.2); Hemolysis Index 18
[2021-01-27 11:17] VITALS: BP 98/67
== END 2021-01-27 11:20 | disposition home or self-care (01) ==
LOC: ED 08:45
DX: J18.9 Pneumonia, unspecified organism (principal); F17.210 Nicotine dependence, cigarettes, uncomplicated; Z20.822 Contact with and (suspected) exposure to COVID-19; Z98.890 Other specified postprocedural states
CPT/HCPCS: 36415; 71046; 80053; 83615; 85025; 86140; 87400; 99283